=== PATIENT | female | born 1960 | race Caucasian/White ===

== ENCOUNTER → 2016-10-20 16:32 | Outpatient (CLI) | payer MEDICAID, MEDICARE ==
[2015-11-25 06:16] VITALS: BMI 26.7
[~2016-10-20 16:32] MED LIST: ADDERALL 20 MG20 M1 PO; CYCLOBENZAPRINE10 MG PO; CYMBALTA60 MG PO; DYAZIDE 37.5/251 CAP PO; DYRENIUM50 MG PO; HYDROCODONE-APA1 TAB PO; NUCYNTA75 MG PO; PHENERGAN25 M1; PHENERGAN25 M1 PO; PREVACID30 MG PO; RESTASIS EYE DR30 EA EACH EYE; SYNTHROID25 MCG PO; SYNTHROID50 MCG PO; TIROSINT75 MCG PO; VIVELLE-DO1 PATCH.B1 TD; XANAX0.5 MG PO; ZEBETA5 MG; ZEBETA5 MG PO
== END | disposition home or self-care (01) ==
LOC: D.MAMMO 10:15
DX: Z12.31 Encounter for screening mammogram for malignant neoplasm of breast (principal)

== ENCOUNTER → 2016-11-06 08:44 | Outpatient (CLI) | payer MEDICARE, MEDICAID ==
[2015-11-25 06:16] VITALS: BMI 26.7
[2016-11-06 11:12] LABS: BASOPHILS 0.7 % (0.0-2.0); EOSINOPHILS 5.1 % (0-7); HEMATOCRIT 40.9 % (36.0-48.0); HEMOGLOBIN 12.9 g/dL (12-16); IMMATURE GRANULOCYTES 0.3 % (0-5); LYMPHOCYTES 33.5 % (15-50); MCH 29.1 pg (26.0-34.0); MCHC 31.5 g/dL (31.0-37.0); MCV 92.1 fL (80.0-100.0); MEAN PLATELET VOLUME 10.4 fL (7.4-10.4); MONOCYTES 6.1 % (2-11); NEUTROPHILS 54.3 % (40-80); PLATELET COUNT 248 10x3/uL (130-400); RBC 4.44 10x6/uL (4.00-5.40); WBC 7.6 10x3/uL (4.8-10.8)
[2016-11-07 10:12] LABS: IMMUNOGLOBULIN E 35 IU/mL (0-100)
[2016-11-09 10:12] LABS: IMMUNOGLOBULIN A 225 mg/dL (87-352); IMMUNOGLOBULIN G 688 mg/dL (700-1600)
== END | disposition home or self-care (01) ==
LOC: D.RT 08:44
PROVIDERS: Internal Medicine Pulmonary Disease
DX: J44.9 Chronic obstructive pulmonary disease, unspecified (principal)

== ENCOUNTER → 2016-12-07 12:42 | Outpatient (CLI) | payer MEDICARE, MEDICAID ==
[2015-11-25 06:16] VITALS: BMI 26.7
== END | disposition home or self-care (01) ==
LOC: D.RAD 11-16 13:00
DX: R13.10 Dysphagia, unspecified (principal)

== ENCOUNTER → 2017-12-31 12:45 | Outpatient (CLI) | payer MEDICARE ==
[2015-11-25 06:16] VITALS: BMI 26.7
== END | disposition home or self-care (01) ==
LOC: D.RT 12:45
DX: J45.991 Cough variant asthma (principal)

== ENCOUNTER 2018-02-25 09:00 | Day surgery (SDC) | payer MEDICARE ==
[2018-02-24 10:20] LABS: HEMATOCRIT 38.5 % (36.0-48.0); HEMOGLOBIN 12.4 g/dL (12-16); MCH 29.8 pg (26.0-34.0); MCHC 32.2 g/dL (31.0-37.0); MCV 92.5 fL (80.0-100.0); RBC 4.16 10x6/uL (4.00-5.40); RDW 13.2 % (11.5-14.5); WBC 8.8 10x3/uL (4.8-10.8)
[2018-02-24 10:30] LABS: ANION GAP 9.2 mmol/L (8-16); CALCIUM 9.6 mg/dL (8.5-10.1); CARBON DIOXIDE 31.6 mmol/L (21.0-32.0); CREATININE - SERUM 1.1 mg/dL (0.6-1.3); POTASSIUM - SERUM 3.8 mmol/L (3.5-5.1)
[~2018-02-25] VITALS: Ht 170.2 cm; Wt 70.3 kg
--- NOTE | ~2018-02-25 | OP ---
PATIENT NAME: KHARI WALTER MEDICAL RECORD: [id number] :64 LOCATION:D.OPS ADMISSION DATE: SURGEON: BENNIE MAZARIEGOS MD DATE OF OPERATION: 02/25/2018 PREOPERATIVE DIAGNOSIS: Medial meniscus tear of the left knee. POSTOPERATIVE DIAGNOSIS: Medial meniscus tear of the left knee. PROCEDURE: Arthroscopic partial medial meniscectomy of the left knee. SURGEON: Bennei Mazariegos MD ANESTHESIA: General. INTRAOPERATIVE COMPLICATIONS: None. SUMMARY OF PATHOLOGIC FINDINGS: The patient has a complex tear of the posterior horn of the medial meniscus consistent with the preoperative MRI. No significant chondromalacia was seen anywhere in the knee. OPERATIVE SUMMARY IN DETAIL: After obtaining the appropriate preoperative orthopedic surgery consent as well as anesthetic consultation, evaluation and clearance, the patient was brought to the operating room and placed on the operating table in supine position. After general laryngeal mask airway was administered, tourniquet was placed on the proximal aspect of left lower extremity. Left lower extremity was then prepped and draped in routine sterile fashion. Leg was elevated and exsanguinated, tourniquet inflated to 350 mmHg. Routine inferolateral portal was established followed by superomedial portal and inferomedial portal. Diagnostic arthroscopy did reveal the patient to have the complex tear of the posterior horn of the medial meniscus. Patellofemoral joint and lateral compartment were pristine. Combination of arthroscopic meniscotome as well as an arthroscopic resector were utilized to debride the meniscus back to stable meniscal elements. Having completed this, the knee was insufflated with 15 cc of 0.5% Marcaine and 80 mg of Depo-Medrol. Arthroscopy portals were closed in routine interrupted fashion using 4-0 Prolene. Sterile dressings were applied. The patient was awakened, taken to recovery room in stable condition. All final needle and sponge counts were correct. TRANSINT:[id number] Voice Confirmation ID: [id number] DOCUMENT ID: [id number] YAIR WALSH, BENNIE ANDERSON at [id number] CC: [id number] DICTATION DATE: 02/25/18 08 STICKER ON: 02/25/18 09 DEP [facility] [place] 02/25/18 [place] [id number]
[2018-02-25 06:36] VITALS: BP 76/58; Ht 170.2 cm; Wt 70.3 kg
[~2018-02-25 09:00] MED LIST changes: +ATIVAN0.5 MG PO; +BREO ELLIPTA 21 EACH; +CLARITIN-D1 TAB.SR . PO; +FLUTICASONE PRO16 GM NASAL; +LIBRAX CAPSULE1 CAP PO; +MUCINEX D1 TAB.SR . PO; +PROTONIX40 MG PO; +PROVENTIL/2.5 MG/3 M INH; +SCOT-TUSSI10 MG/5 ML PO; +SINGULAIR10 MG PO; +VALIUM5 MG PO; +VITAMIN B-1000 MCG/M IM; +VITAMIN D31000 UNIT PO
== END 2018-02-25 11:00 | disposition home or self-care (01) ==
LOC: D.OPS 09:00
PROVIDERS: Anesthesiology
DX: S83.232A Complex tear of medial meniscus, current injury, left knee, initial encounter (principal); Z01.812 Encounter for preprocedural laboratory examination

== ENCOUNTER → 2018-04-04 10:43 | Outpatient (CLI) | payer MEDICARE ==
[2018-02-25 06:36] VITALS: BMI 24.3
== END | disposition home or self-care (01) ==
LOC: D.MRI 10:43
DX: M25.511 Pain in right shoulder (principal)

== ENCOUNTER → 2019-04-19 14:18 | Outpatient (CLI) | payer MEDICARE ==
[2018-02-25 06:36] VITALS: BMI 24.3
== END | disposition home or self-care (01) ==
LOC: D.HCCARDIO 14:18
PROVIDERS: ATTEND Internal Medicine Cardiovascular Disease
DX: R06.09 Other forms of dyspnea (principal)

== ENCOUNTER → 2019-06-06 10:55 | Outpatient (CLI) | payer MEDICARE ==
[2018-02-25 06:36] VITALS: BMI 24.3
== END | disposition home or self-care (01) ==
LOC: D.CT 10:30
PROVIDERS: ATTEND Internal Medicine Gastroenterology
DX: R13.10 Dysphagia, unspecified (principal)

== ENCOUNTER → 2019-06-08 10:00 | Outpatient (CLI) | payer MEDICARE ==
[2018-02-25 06:36] VITALS: BMI 24.3
== END | disposition home or self-care (01) ==
LOC: D.MAMMO 05-16 15:30
PROVIDERS: ATTEND Emergency Medicine
DX: Z12.31 Encounter for screening mammogram for malignant neoplasm of breast (principal)

== ENCOUNTER → 2019-06-20 10:42 | Outpatient (CLI) | payer MEDICARE, OTHER ==
[2018-02-25 06:36] VITALS: BMI 24.3
== END | disposition home or self-care (01) ==
LOC: D.OPS 06-15 10:30
PROVIDERS: ATTEND Internal Medicine Gastroenterology
DX: R13.10 Dysphagia, unspecified (principal); R10.13 Epigastric pain; K21.9 Gastro-esophageal reflux disease without esophagitis

== ENCOUNTER 2019-08-17 08:00 | Outpatient (CLI) | payer MEDICARE ==
[2018-02-25 06:36] VITALS: BMI 24.3
== END 2019-08-17 23:59 | disposition home or self-care (01) ==
LOC: D.MAMMO 08:00
PROVIDERS: ATTEND Emergency Medicine
DX: R92.8 Other abnormal and inconclusive findings on diagnostic imaging of breast (principal)